=== PATIENT | male | born 1935 | race Caucasian/White ===

== ENCOUNTER 2020-10-28 13:09 | Inpatient (IN) | payer OTHER ==
[2020-10-28 13:41] VITALS: BMI 28.7
[2020-10-28] MEDS ORDERED: FAMOTIDINE 20 MG/50 ML IVPB 20 MG/50 ML MG IVPB ONE ×2 (13:45→14:48)
[2020-10-28] MEDS ORDERED: SODIUM CHLORIDE 1,000 ML IV STA (13:45)
[2020-10-28] MEDS ORDERED: ALBUTEROL SO4 0.083% IH SOL 2.5 MG/3 ML VIAL.NEB. NEB ONE ×2 (13:47→14:48)
[2020-10-28 14:24] LABS: EPI CELLS 6 /uL (0-25.1); HYALINE CASTS 1 /uL (0-3.1); URINE APPEARANCE CLOUDY; URINE BACTERIA 99 /uL (0-1359); URINE BILIRUBIN 1+ (NEGATIVE); URINE COLOR DK YELLOW; URINE GLUCOSE (UA) NEGATIVE (NEGATIVE); URINE KETONE NEGATIVE (NEGATIVE); URINE LEUK ESTERASE TRACE (NEGATIVE); URINE NITRITE NEGATIVE (NEGATIVE); URINE PROTEIN 1+ (NEGATIVE); URINE WBC 19 /uL (0-25.8)
[2020-10-28 14:25] LABS: URINE RBC 73.6 /uL (0-23.9)
[2020-10-28 14:26] LABS: URINE CRYSTALS NON SEEN /hpf; YEAST NON SEEN (NEGATIVE)
[2020-10-28 15:01] LABS: BASO % 0.7 % (0-2.0); EOS % 0.1 % (0-4.5); HEMATOCRIT 27.9 % (35.4-49); HEMOGLOBIN 9.2 GM/dL (11.7-16.9); LYMPH % 8.6 % (8-40); MCH 30.4 pg (25.7-33.7); MCHC 33.2 g/dl (32.0-35.9); MEAN CELL VOLUME 91.6 fl (80-96); MEAN PLT VOLUME 10.2 fl (7.5-11.1); MONO % 2.6 % (3.8-10.2); PLATELET COUNT 84 K/MM3 (134-434); RBC 3.04 M/mm3 (4.00-5.60); RDW 22.5 % (11.9-15.9); WHITE BLOOD COUNT 6.3 K/mm3 (4.0-10.0)
[2020-10-28 15:19] LABS: CHLORIDE 115 mmol/L (98-107); POTASSIUM 4.9 mmol/L (3.5-5.1); SODIUM 141 mmol/L (136-145)
[2020-10-28 15:22] LABS: ANION GAP 15 MMOL/L (8-16); CO2 11 mmol/L (21-32); GLUCOSE,RANDOM 178 mg/dL (74-106); MAGNESIUM 2.2 mg/dL (1.8-2.4)
[2020-10-28 15:25] LABS: CREATININE 5.9 mg/dL (0.55-1.3); SGOT/AST 218 U/L (15-37); SGPT/ALT 81 U/L (13-61)
[2020-10-28 15:26] LABS: TOT PROT 3.9 g/dl (6.4-8.2)
[2020-10-28 15:27] LABS: ALK PHOS 527 U/L (45-117)
[2020-10-28 15:28] LABS: LDH 474 U/L (87-246)
[2020-10-28 15:37] LABS: BLOOD UREA NITROGEN 115.6 mg/dL (7-18); CALCIUM < 5.0 mg/dL (8.5-10.1)
[2020-10-28 15:40] LABS: ANISOCYTOSIS 2+; MACROCYTOSIS 0; OVALOCYTE 1+; PLATELET ESTIMATE DECREASED; TARGET CELLS 1+; TEAR DROP CELLS 1+
[2020-10-28] MEDS ORDERED: LACTATED RINGERS SOLUTION 1000 ML INFUS.BAG IV ONE (16:45)
[2020-10-28] MEDS ORDERED: PIPERACILLIN/TAZOB 3.375 GM 3.375 GM in DEXTROSE 5%-WATER - 50 ML IVPB ONE (16:46)
[2020-10-28] MEDS ORDERED: CEFTRIAXONE 1,000 MG in DEXTROSE 5%-WATER - 50 ML IVPB ONE (16:48)
[2020-10-28] MEDS ORDERED: VANCOMYCIN 1 GM in D5W (PRE-DOCKED) 1,000 MG/250 ML IVPB ONE (16:50)
[2020-10-28] MEDS ORDERED: VANCOMYCIN 1 GRAM (PRE-DOCKED) 1,000 MG/250 ML BAG IVPB ONE (16:54)
[2020-10-28] MEDS ORDERED: CALCIUM GLUCONATE 10% - 1,000 MG/10 ML VIAL IVPB ONE (18:09)
[2020-10-28] MEDS ORDERED: ACETAMINOPHEN 1000 MG/100 ML VIAL (NON FORMULARY) IVPB ONE (18:39)
[2020-10-28] MEDS ORDERED: CALCIUM GLUCONATE 10% - 1,000 MG/10 ML VIAL ONE (19:34)
[2020-10-28] MEDS ORDERED: ACETAMINOPHEN INJECTION 100 ML IVPB ONE (19:35)
[2020-10-28] MEDS ORDERED: PIPERACILLIN/TAZOB 3.375 GM 3.375 GM/50 ML BAG IVPB ONE (19:35)
[2020-10-28] MEDS ORDERED: HALOPERIDOL LACTATE 5 MG/ML IM ONE (20:10)
[2020-10-28] MEDS ORDERED: HALOPERIDOL LACTATE 5 MG/ML ONE (20:13)
[2020-10-28] MEDS ORDERED: MORPHINE SULFATE 2 MG/ML VIAL IVPUSH PRN ×3 (21:19→23:30)
[2020-10-28 22:00] VITALS: TEMP 99.1
[2020-10-28] MEDS ORDERED: SODIUM CHLORIDE 0.9% 500 ML INFUS.BAG IV ONE (22:49)
[2020-10-29] MEDS ORDERED: MORPHINE SULFATE 2 MG/ML VIAL ONE ×2 (00:32→02:01)
[2020-10-29] MEDS: SODIUM CHLORIDE 1,000 ML IV SCH ×2 (00:42→21:36)
[2020-10-29] MEDS ORDERED: LACTATED RINGERS SOLUTION 1000 ML INFUS.BAG IV ONE ×2 (01:09→02:45)
[2020-10-29] MEDS ORDERED: ACETAMINOPHEN 1000 MG/100 ML VIAL (NON FORMULARY) IVPB ONE (04:55)
[2020-10-29] MEDS ORDERED: ACETAMINOPHEN INJECTION 100 ML IVPB ONE (04:56)
[2020-10-29 08:41] LABS: POTASSIUM 4.9 mmol/L (3.5-5.1)
[2020-10-29 08:48] LABS: ALBUMIN 1.1 g/dl (3.4-5.0); MAGNESIUM 2.2 mg/dL (1.8-2.4)
[2020-10-29 08:50] LABS: BASO % 0.1 % (0-2.0); EOS % 0.1 % (0-4.5); HEMATOCRIT 20.6 % (35.4-49); LYMPH % 3.3 % (8-40); MCH 30.5 pg (25.7-33.7); MEAN CELL VOLUME 89.8 fl (80-96); MEAN PLT VOLUME 8.6 fl (7.5-11.1); MONO % 2.3 % (3.8-10.2); NEUT % 94.2 % (42.8-82.8); WHITE BLOOD COUNT 2.9 K/mm3 (4.0-10.0)
[2020-10-29 08:51] LABS: BILIRUBIN,TOTAL 2.5 mg/dL (0.2-1); CREATININE 6.5 mg/dL (0.55-1.3); PHOSPHOROUS 8.1 mg/dL (2.5-4.9); PLATELET COUNT 23 K/MM3 (134-434)
[2020-10-29 09:24] LABS: BLOOD UREA NITROGEN 128.2 mg/dL (7-18); CALCIUM 5.4 mg/dL (8.5-10.1)
[2020-10-29] MEDS ORDERED: ACETAMINOPHEN 1000 MG/100 ML VIAL (NON FORMULARY) IVPB PRN (09:35)
[2020-10-29] MEDS ORDERED: SCOPOLAMINE HYDROBROMIDE 1 PATCH PATCH.TD72 TD SCH (09:45)
[2020-10-29] MEDS ORDERED: MORPHINE SULFATE/0.9% NACL/PF 100 MG/100 ML BAG IVPB SCH ×2 (09:45)
[2020-10-29] MEDS ORDERED: MORPHINE SULFATE/0.9% NACL/PF 100 MG/100 ML BAG ONE (09:50)
[2020-10-29] MEDS: PANTOPRAZOLE 40 MG TABLET PO SCH (10:32)
[2020-10-29 11:14] LABS: ANISOCYTOSIS 2+; MACROCYTOSIS 0; OVALOCYTE 1+; PLATELET ESTIMATE DECREASED
[2020-10-29 22:35] VITALS: BP 67/26
[2020-10-30] MEDS: PANTOPRAZOLE 40 MG TABLET PO SCH (10:13)
[2020-10-30 17:35] VITALS: PULSE 25
== END 2020-10-31 02:00 | disposition expired | DRG 871 ==
LOC: JER 13:09 → JERBED 18:06
PROVIDERS: ADMIT Internal Medicine; ATTEND Family Medicine
DX: A41.9 Sepsis, unspecified organism (principal); G93.41 Metabolic encephalopathy; R65.21 Severe sepsis with septic shock; J18.9 Pneumonia, unspecified organism; N17.9 Acute kidney failure, unspecified; J90 Pleural effusion, not elsewhere classified; D61.818 Other pancytopenia; E88.09 Other disorders of plasma-protein metabolism, not elsewhere classified; I95.9 Hypotension, unspecified; E83.51 Hypocalcemia; D64.9 Anemia, unspecified; S40.029A Contusion of unspecified upper arm, initial encounter; D69.6 Thrombocytopenia, unspecified; Z51.5 Encounter for palliative care; R62.7 Adult failure to thrive; Z68.28 Body mass index [BMI] 28.0-28.9, adult; R00.1 Bradycardia, unspecified; I46.9 Cardiac arrest, cause unspecified; Z78.9 Other specified health status; Z85.51 Personal history of malignant neoplasm of bladder; Z85.118 Personal history of other malignant neoplasm of bronchus and lung; Z66 Do not resuscitate; W18.30XA Fall on same level, unspecified, initial encounter; Y92.098 Other place in other non-institutional residence as the place of occurrence of the external cause; Z85.850 Personal history of malignant neoplasm of thyroid
CPT/HCPCS: 36415; 71045-TC-FY; 80053; 81003; 82550; 82728; 83605; 83615; 83735; 84100; 84443; 84484; 85025; 86140; 87040; 87086; 87186; 93005; 93010; 99285-25; C9803; J0131; U0003